=== PATIENT | female | born 1995 | race Caucasian/White ===

== ENCOUNTER → 2017-02-16 | Outpatient (CLI) | payer OTHER, MEDICAID ==
[~2017-02-16] MED LIST: FAMO20 PO; NORE1TAB57 PO; OMEP20TA39 PO
== END ==
LOC: HPND 14:27
PROVIDERS: ATTEND Obstetrics & Gynecology
DX: Z34.02 Encounter for supervision of normal first pregnancy, second trimester (principal)
CPT/HCPCS: 76805